=== PATIENT | male | born 1950 | race Caucasian/White ===

== ENCOUNTER 2023-12-06 09:12 | Outpatient (OUT) | payer MEDICARE, BC, SELFPAY ==
--- NOTE | 2023-12-06 | XR_ITS ---
The [address] [address] Patient Name: DAKOTAH JUNG MRN: [id number] date: 1950 Sex: M Assigned Patient Location: Current Patient Location: Accession/Order Number: [id number] Exam Date: 12/06/2023 09:14 Report Date: 12/07/2023 06:47 At the request of: PIYUSH NEAL Procedure: XR foot LT min 3V PROCEDURE: XR foot LT min 3V HISTORY: LEFT FOOT PAIN ; lateral 5th toe wound COMPARISON: None. FINDINGS: BONES:No fracture, acute abnormality, or significant arthropathy. SOFT TISSUES:Soft tissue swelling of 5th toe. EFFUSION:None visible. OTHER: Negative. XR/XR foot LT min 3V IMPRESSION: 1. Left 5th toe soft tissue swelling consistent with patient history. No appreciable bone involvement to suggest osteomyelitis. 2. Multifocal mild degenerative joint disease. Electronically authenticated by: MOOKIE DEVINE Date: 12/07/2023 06:47
== END 2023-12-06 09:13 | disposition home or self-care (01) ==
LOC: WC 09:12
PROVIDERS: PCP Nurse Practitioner; Visit Provider Podiatrist Foot & Ankle Surgery
DX: M79.672 Pain in left foot (principal); M79.89 Other specified soft tissue disorders; L97.521 Non-pressure chronic ulcer of other part of left foot limited to breakdown of skin; L84 Corns and callosities
CPT/HCPCS: 11042; 73630; G0463

== ENCOUNTER 2024-08-03 11:08 | Outpatient (OUT) | payer MEDICARE, BC, SELFPAY ==
--- NOTE | 2024-08-03 11:36 | XR_ITS ---
[address] [address] Patient Name: DAKOTAH JUNG MRN: [id number] date: 1950 Sex: M Assigned Patient Location: RAD Current Patient Location: RAD Accession/Order Number: [id number] Exam Date: 08/03/2024 11:30 Report Date: 08/03/2024 11:53 At the request of: RHINA VILLALTA Procedure: XR chest 2V EXAMINATION: XR chest 2V HISTORY: Cough, Shortness Of Breath, Body Aches, Fever COMPARISON: No relevant comparison available. TECHNIQUE: PA and lateral FINDINGS: LUNGS: Moderate bibasilar infiltrates partially obscuring the hemidiaphragms. Soft tissue attenuation in the right upper lung zone VASCULATURE: No increased pulmonary vasculature. PLEURA: No pneumothorax. Suspected small left pleural effusion CARDIAC: No cardiomegaly or cardiac silhouette abnormality. MEDIASTINUM: No visible mass or adenopathy. BONES: No fracture or visible bone lesion. OTHER: Negative. XR/XR chest 2V IMPRESSION: Multifocal infiltrates, consider pneumonia. Follow-up recommended to document resolution Electronically authenticated by: GALEN DORAN Date: 08/03/2024 11:53
== END 2024-08-03 11:09 | disposition home or self-care (01) ==
LOC: RAD 11:13
PROVIDERS: PCP Nurse Practitioner; Visit Provider Nurse Practitioner
DX: R05.9 Cough, unspecified (principal); R06.02 Shortness of breath; R50.9 Fever, unspecified
CPT/HCPCS: 71046